=== PATIENT | female | born 1950 | race Caucasian/White ===

== ENCOUNTER 2018-03-15 14:55 | Emergency (ER) | payer OTHER ==
[~2018-03-15] VITALS: Ht 152.4 cm; Wt 81.2 kg
[2018-03-15 14:58] VITALS: Ht 152.4 cm; Wt 81.2 kg
[2018-03-15 16:28] VITALS: BP 143/90
== END 2018-03-15 16:28 | disposition home or self-care (01) ==
LOC: ED 14:55
DX: L25.9 Unspecified contact dermatitis, unspecified cause (principal); I10 Essential (primary) hypertension; Z88.0 Allergy status to penicillin; Z90.49 Acquired absence of other specified parts of digestive tract; Z90.710 Acquired absence of both cervix and uterus